=== PATIENT | male | born 1945 | race Caucasian/White ===

== ENCOUNTER 2016-07-28 21:17 | Inpatient (IN) | payer MEDICARE, OTHER ==
[~2016-07-28 21:17] MED LIST: BROVANA15 MCG/2 M INH; CALCIUM CARBON600 MG PO; DALIRESP500 MCG PO; DILTIAZEM HCL30 MG PO; FERROUS SULFAT325 M2 PO; FERROUS SULFAT325 MG PO; FIBER500 MG PO; FINASTERIDE5 MG PO; FLOMAX 0.4 MG0.4 MG PO; IPRATROPIU0.2 MG/1 M INH; LASIX20 MG PO; LEVAQUIN500 MG PO; LINZESS145 MCG PO; MIRALAX PACK 171 PKT PO; OMNICEF 300 MG300 MG PO; PANTOPRAZOLE SO40 MG PO; PAROXETINE HCL30 MG PO; PHENAZOPYRIDIN200 MG PO; PLAVIX 75 MG TA75 MG PO; PRAVASTATIN SOD40 MG PO; PREDNISONE 10 M10 MG PO; RAMIPRIL5 MG PO; SPIRIVA18 MCG INH; VENTOLIN/PROVE0.5 ML INH; VITAMIN D32000 UNI1 PO; ZOFRAN4 MG PO
[2016-07-29 01:17] LABS: RED BLOOD COUNT 4.01 M/UL (4.20-5.50); WHITE BLOOD COUNT 8.1 K/UL (4.5-11.0)
[2016-07-29] MEDS ORDERED: LINZESS145 MCG PO (14:10)
[2016-07-29] MEDS ORDERED: MIRALAX PACK 171 PKT PO (14:13)
[2016-07-29] MEDS ORDERED: DALIRESP500 MCG PO (14:13)
[2016-07-30 08:16] LABS: HEMOGLOBIN 9.9 gm/dl (14.0-17.5)
[2016-07-30 08:17] LABS: RED BLOOD COUNT 3.6 M/UL (4.20-5.50)
[2016-08-01 04:46] LABS: HEMOGLOBIN 9.9 gm/dl (14.0-17.5); RED BLOOD COUNT 3.6 M/UL (4.20-5.50); WHITE BLOOD COUNT 6.2 K/UL (4.5-11.0)
[2016-08-01 05:04] LABS: BUN/CREATININE RATIO 19 (0-10)
[2016-08-02 07:10] LABS: HEMOGLOBIN 9.6 gm/dl (14.0-17.5); RED BLOOD COUNT 3.47 M/UL (4.20-5.50)
[2016-08-02 07:27] LABS: BUN/CREATININE RATIO 20 (0-10)
== END 2016-08-03 14:15 | DRG 683 ==
LOC: ER1 21:17 → MED SURG 4 07-29 02:20 → ZEROF 07-29 02:20 → MED SURG 4 07-29 06:00
PROVIDERS: Emergency Medicine; Family Medicine; Physician Assistant; Student in an Organized Health Care Education/Training Program; ADMIT Internal Medicine
DX: N17.9 Acute kidney failure, unspecified (principal); J96.10 Chronic respiratory failure, unspecified whether with hypoxia or hypercapnia; E87.1 Hypo-osmolality and hyponatremia; E87.2 Acidosis; I12.9 Hypertensive chronic kidney disease with stage 1 through stage 4 chronic kidney disease, or unspecified chronic kidney disease; N18.9 Chronic kidney disease, unspecified; E86.0 Dehydration; J44.9 Chronic obstructive pulmonary disease, unspecified; E87.5 Hyperkalemia; N40.1 Benign prostatic hyperplasia with lower urinary tract symptoms; M62.50 Muscle wasting and atrophy, not elsewhere classified, unspecified site; R53.1 Weakness; I73.9 Peripheral vascular disease, unspecified; Z99.81 Dependence on supplemental oxygen; K59.00 Constipation, unspecified; Z86.718 Personal history of other venous thrombosis and embolism; Z87.891 Personal history of nicotine dependence; Z80.9 Family history of malignant neoplasm, unspecified; Z83.3 Family history of diabetes mellitus; Z82.49 Family history of ischemic heart disease and other diseases of the circulatory system; D64.9 Anemia, unspecified; E66.9 Obesity, unspecified; Z68.35 Body mass index [BMI] 35.0-35.9, adult; Z79.899 Other long term (current) drug therapy; Z79.02 Long term (current) use of antithrombotics/antiplatelets
CPT/HCPCS: 36415; 71010; 80048; 80053; 81001; 82550; 82553; 83605; 83735; 83874; 83880; 84484; 85025; 85027; 85379; 87040; 87086; 93005; 94664; 99285; J1650; J7030